=== PATIENT | male | born 1970 | race Caucasian/White ===

== ENCOUNTER 2023-02-17 12:53 | Emergency (ER) | payer OTHER, SELFPAY ==
[2023-02-17 13:12] VITALS: BP 150/88; PULSE 76; RESP 16; TEMP 36.5; O2SAT 96
--- NOTE | 2023-02-17 13:17 | ED.SKABFB ---
HPI - Skin/Abscess/Foreign Bdy General Chief complaint: Skin/Abscess/Foreign Body Stated complaint: rash Time Seen by Provider: 02/17/23 13:01 Source: patient Mode of arrival: ambulatory Limitations: no limitations History of Present Illness HPI narrative: Ayan is a 52-year-old male patient presenting to the clinic today with complaints of a rash to his left lateral hip and left is lower abdomen. He reports that this rash has been there for 1-2 days. Has been out hunting and has been well covered. States he does not normally get poison souleymane or poison oak. Reports that the rash is itchy and seems to be spreading. Denies any fever or chills Related Data Home Medications Medication Instructions Recorded Confirmed amlodipine 10 mg tablet 10 mg PO DAILY 02/17/23 02/17/23 pravastatin 40 mg tablet 40 mg PO HS 02/17/23 02/17/23 Allergies Allergy/AdvReac Type Severity Reaction Status Date / Time No Known Allergies Allergy Verified 02/17/23 13:19 Review of Systems Review of Systems: Pertinent positives per HPI. Patient denies any fever, chills, headache, visual changes, dizziness, cough, runny nose, sore throat, shortness of breath, chest pain, palpitations, nausea, vomiting, diarrhea, constipation, abdominal pain, or any urinary issues. PMFSH Comments At the time of my signature, I reviewed and agree with the nursing past medical, surgical, social, and family history. There is no relevant family history pertinent to the patient complaint. Exam Narrative: General: Well-developed, well nourished, in no apparent distress Head: Normocephalic, atraumatic. Cardio: Regular rate and rhythm, s1 and s2 normal, no murmur appreciated. Resp: Clear to auscultation bilaterally, no rhonchi, rales, wheezing or rubs. Integumentary: [place], warm, and dry, intact without lesion, red raised patchy scaly itchy nonpainful rash to the left lateral hip and left lower abdomen. Course Course Emergency Course: Portions of this record may have been created with voice recognition software. Level of Care: Express Care Visit Vital Signs Vital signs: Vital Signs Temperature 36.5 C 02/17/23 13:12 Pulse Rate 76 02/17/23 13:12 Respiratory Rate 16 02/17/23 13:12 Blood Pressure 150/88 H 02/17/23 13:12 Pulse Oximetry 96 02/17/23 13:12 Oxygen Delivery Room Air 02/17/23 13:12 Temperature 36.5 C 02/17/23 13:12 Pulse Rate 76 02/17/23 13:12 Respiratory Rate 16 02/17/23 13:12 Blood Pressure 150/88 H 02/17/23 13:12 Pulse Oximetry 96 02/17/23 13:12 Oxygen Delivery Room Air 02/17/23 13:12 Vital signs reviewed MDM - Skin/Abscess/Foreign Bdy MDM Narrative Medical decision making narrative: At the time of visit patient is resting comfortably on exam table. I suspect patient has dermatitis to the left hip and left abdomen. Prescription for prednisone taper dose and triamcinolone cream was sent to the pharmacy and supportive measures were discussed with the patient he voiced understanding discharge instructions and agrees to treatment plan. Differential Diagnosis Differential diagnosis: Likely abscess of skin or subcutaneous tissue, viral exanthem, urticaria, cellulitis, eczema, insect bites, impetigo and contact dermatitis Discharge Plan Discharge Clinical Impression: Dermatitis Patient Disposition: Home, Self-Care Condition: Stable Instructions: Antibiotic Form, Dermatitis (ED) Additional Instructions: Apply triamcinolone cream as directed Take prednisone as directed Avoid hot showers May apply calamine lotion to rash Avoid scratching and this causes rash to spread May take benadryl 25-50mg every 6 hours as needed for itching. Follow up with your PCP in 3-5 days if symptoms persist or sooner if they worsen Go to the Emergency Room if symptoms worsen- fever, rash spreading with treatment, shortness of breath, tongue swelling, drooling, or chest pain Prescriptions: New
== END 2023-02-17 13:25 | disposition home or self-care (01) ==
PROVIDERS: Emergency Provider Nurse Practitioner Family; PCP Family Medicine
DX: L30.9 Dermatitis, unspecified (principal); E78.00 Pure hypercholesterolemia, unspecified; I10 Essential (primary) hypertension
CPT/HCPCS: 99203; G0463

== ENCOUNTER 2025-03-14 15:05 | Emergency (ER) | payer OTHER, SELFPAY ==
--- NOTE | 2025-03-14 15:06 | ED.URI ---
HPI - URI/Sore Throat General Chief Complaint: Upper Respiratory Infection Stated Complaint: Cough Time Seen by Provider: 03/14/25 15:05 Source: patient Mode of arrival: ambulatory Limitations: no limitations History of Present Illness HPI Narrative: Patient is a 54-year-old male who presents with 1 week of cough, congestion, chest congestion. Denies any fever, body aches, headache, nausea, vomiting, diarrhea. Has tried DayQuil and Mucinex Related Data Home Medications ?Medication ?Instructions ?Recorded ?Confirmed ?Last Taken ?Type amlodipine 10 mg tablet 10 mg PO DAILY 02/17/23 02/17/23 Unknown History pravastatin 40 mg tablet 40 mg PO HS 02/17/23 02/17/23 Unknown History Allergies Allergy/AdvReac Type Severity Reaction Status Date / Time No Known Allergies Allergy Verified 03/14/25 15:09 Review of Systems Review of Systems: All systems reviewed & are unremarkable except as noted in HPI and below Constitutional: Constitutional: Denies chills, Denies fatigue, Denies fever(s), Denies headache(s), Denies malaise and Denies weakness Eyes: Eyes: Denies blurry vision, Denies itchy eyes and Denies loss of vision ENT: Denies otalgia, Denies headache(s), Reports nasal congestion, Denies sinus pain and Denies sore throat Cardiovascular: Cardiovascular: Denies chest pain, Denies irregular heart rhythm and Denies dyspnea Respiratory: Respiratory: Reports chest congestion, Reports cough and Denies dyspnea Gastrointestinal: Gastrointestinal: Denies abdominal pain, Denies diarrhea, Denies nausea and Denies vomiting Musculoskeletal: Musculoskeletal: Denies back pain, Denies myalgias and Denies arthralgias Integumentary/Breasts: Skin/Breast: Denies pruritus and Denies rash Neurologic: Denies headache(s), Denies loss of vision and Denies weakness Psychiatric: Psychiatric: Reports no additional psychiatric complaints Endocrine: Endocrine: Denies fatigue Allergic/Immunologic: Allergic/Immunologic: Denies itchy eyes PMFSH Comments At time of signature, agree with nursing past medical, surgical, social and family history. There is no relevant family history pertinent to the presenting complaint. Exam Const: General: cooperative, healthy appearing, comfortable, no acute distress and well nourished Nutritional Appearance: well nourished Orientation/consciousness: patient oriented x3 Limitations: no limitations HENMT: Head: normal to inspection, normocephalic and atraumatic Ears: hearing grossly normal bilaterally, external ears normal, TM's normal bilaterally, EAC's normal and no periauricular adenopathy Face/Nose/Sinus: Normal external nose present, Abnormal mucous membranes and turbinates present erythematous bilateral and diffuse, normal facial exam, sinuses nontender and face symmetric Face and sinus: normal facial exam, sinuses nontender and face symmetric Mouth: Yes Normal oral and palatal mucosa present, Yes lip normal, Yes tongue normal, Yes Normal salivary glands and ducts present, Yes oropharynx normal and Yes moist mucous membranes Teeth and gingiva: dentition normal Throat: posterior oropharynx normal, tonsils normal and uvula midline Eyes: General: appearance normal, both eyes and all related structures Alignment and Position: alignment normal and position normal Periorbital: periorbital findings normal Eyelids: eyelids normal Pupils: Equal, round and reactive pupils present Neck: Neck: normal visual inspection, full ROM, no lymphadenopathy and supple Chest: Chest palpation & inspection: normal inspection of the chest and normal palpation of entire chest wall Resp: Effort & Inspection: normal respiratory effort, able to speak in complete sentences and Actively coughing dry Auscultation: no crackles, no rales, rhonchi right upper and right lower and no wheezes Cardio: Rate: regular rate Rhythm: regular rhythm Heart sounds: S1 normal heart sound present and S2 normal heart sound present GI: Inspection: normal to inspection Skin: General skin exam: normal color and no rashes or lesions noted Neuro: General: patient oriented x3 and moves all extremities Cranial nerves: Yes Equal, round and reactive pupils present Speech: normal speech Gait exam (Neuro): Normal gait present Extrem: General: normal to inspection, full ROM and no edema Psych: Appearance: grossly normal and well kempt Mental Status: mental status grossly normal Speech and movement: Normal speech and movement present Affect: normal affect Attitude: cooperative Thought process: Normal thought process present Course Course Emergency Course: Discharge instructions reviewed with patient, as well as provided in writing per nursing staff. The instructions also include specific and strict return/GO TO THE ER as well as f/u information. All questions have been answered, and the patient deny any further questions with discharge and discharge plan. Portions of this record may have been created with voice recognition software Level of Care: Express Care Visit Vital Signs Vital signs: Reviewed [facility] - URI/Sore Throat MDM Narrative Medical decision making narrative: Pt well hydrated appearing, in no respiratory distress, hemodynamically stable. Recommend supportive care. The patient is stable at time of discharge the clinical impression was discussed and the patient was given the opportunity to ask questions, which were addressed as completely as possible given the information available at present. Anticipatory guidance and return to care precautions were discussed and the importance of primary care follow-up was stressed and encouraged. The patient voiced understanding of the plan, indications to return, and the need for follow-up. Exam findings show no acute concerns or changes Patient is appropriate for outpatient treatment and follow-up. Differential diagnosis considered: Pinon virus, strep pharyngitis, allergic rhinitis, upper respiratory tract infection, sinusitis, rhinosinusitis, nasopharyngitis. viral pharyngitis, otitis media, otitis externa, otitis effusion, foreign body, cerumen impaction, viral syndrome, and influenza.? Medical Records Attestation: I reviewed the patient's medical records. Discharge Plan Discharge Clinical Impression: Upper respiratory infection with cough and congestion Patient Disposition: Home Condition: Stable Instructions: Upper Respiratory Infection (ED) Additional Instructions: Take antibiotic as prescribed. Take steroids in the morning with food. Use Tessalon Perles as needed for cough. Use inhaler with spacer as needed. Other symptomatic treatments include: -Alternate Tylenol and Motrin per package directions for fever or pain: Tylenol 650-1000mg by mouth every 4-6 hours. Do not exceed 4000mg in 24 hours. Advil (Ibuprofen) 600 mg by mouth every 6 hours. Do not exceed 2400mg in 24 hours. 8 AM: Tylenol 11 AM: Ibuprofen 2 PM: Tylenol 5 PM: Ibuprofen 8 PM: Tylenol 11 PM: Ibuprofen 2 AM: Tylenol 5 AM: Ibuprofen -Antihistamine medication such as Benadryl at night and Zyrtec/Claritin/Kaylin during the day can help improve symptoms. -Use Flonase twice a day for 5 days then daily to help reduce the inflammation and dry up your sinuses. -You can also use Sudafed or Mucinex. Be sure to drink plenty of water with these medications at least 8 ounces with every dose and it is important to drink 8 to 10 glasses of water per day. Water is a natural decongestant -Eat and drink things that are easy to swallow, like tea or soup, or popsicles. -Oral rinses such as: Salt water gargles and/or may use topical anesthetic (eg. Chloraseptic spray) or lozenges to relieve dryness or throat pain). -Frequent hand washing or hand latin professor is one of the best ways to prevent spread of infection. -Using a vaporizer or humidifier at night will also help thin secretions and help with coughing up phlegm. Call your Primary Care Doctor and make a follow-up appointment in 3 days. If your cough worsens, you develop a fever greater than 103, you develop shaking chills, a fast heartbeat, trouble breathing and/or feel you are are breathing much faster than usual, call your Primary Care Doctor or go to the ER. Patient Language: Portuguese Prescriptions: New azithromycin 250 mg tablet See Rx Instructions .ROUTE .COMPLEX Qty: 6 0RF Rx Instructions: For 250 mg dose pack: take 500 mg today (day 1), then 250 mg for 4 days (days 2-5) benzonatate 100 mg capsule 100 mg PO BID PRN (Reason: cough) Qty: 14 0RF methylprednisolone [Medrol (Louis)] 4 mg tablets,dose pack See Rx Instructions .ROUTE .COMPLEX Qty: 21 0RF Rx Instructions: orally per package directions albuterol sulfate 90 mcg/actuation HFA aerosol inhaler 2 puff inhalation QID PRN (Reason: shortness of breath or wheezing) Qty: 6.7 0RF (DME) Aerochamber MV Spacer See Rx Instructions .Route Qty: 1 0RF Rx Instructions: As directed No Action pravastatin 40 mg tablet 40 mg PO HS amlodipine 10 mg tablet 10 mg PO DAILY triamcinolone acetonide 0.1 % cream 1 applic topical BID 7 Days Qty: 30 0RF Follow-up/Referrals: Duane,Fortino Acosta DO [Primary Care Provider, Unknown] - 3 Days Time of Disposition: 15:20
[2025-03-14 15:11] VITALS: BP 152/89; PULSE 88; RESP 20; TEMP 36.6; O2SAT 97
== END 2025-03-14 15:21 | disposition home or self-care (01) ==
PROVIDERS: Emergency Provider Nurse Practitioner Family; PCP Family Medicine
DX: J06.9 Acute upper respiratory infection, unspecified (principal); R05.9 Cough, unspecified; I10 Essential (primary) hypertension; E78.00 Pure hypercholesterolemia, unspecified
CPT/HCPCS: 99213; G0463

== ENCOUNTER 2025-04-22 09:20 | Emergency (ER) | payer OTHER, SELFPAY ==
--- OUTSIDE RECORDS SUMMARY | 2025-04-22 09:22 | XMS_ITS ---
Author Organization Unknown ENCOUNTERS Encounter Performer Location Date Diagnosis Diagnosis Status Outpatient [facility] [address] [place] [address] [id number] RTN Outpatient [facility]AN[facility]O [facility]ER[facility] [address] [id number] RTN *Note: Encounters from your own facility or health system may be excluded. Allergies, Adverse Reactions, Alerts Allergen Type Severity Identification Date Medications Name Date Quantity Days Supplied GPI Number
--- OUTSIDE RECORDS SUMMARY | 2025-04-22 09:22 | XMS_ITS | Clinical Summary ---
Author Organization [facility] [address] [place] [address] Care Team Providers Care [employer] Worker Name Role Phone Fortino Zepeda DO Primary Care Provider Allergies No known active allergies Medications furosemide (LASIX) 20 mg tabletIndicati ons:Hypertensi on, essential,Loca lized edema TAKE 1 TABLET BY MOUTH EVERY DAY 90 tablet 1 12/01/19 25 Active syringe with needle, safety 3 mL 21 gauge x 1 1/2 syringe Use to inject testosterone monthly 12 each 03/04/20 25 Active testosterone cypionate (DEPO-TESTOTER ONE) 200 mg/mL injection Inject 1 mL (200 mg total) into the muscle as instructed every 28 (twenty-eight) days 1 mL 3 03/04/20 25 Active pravastatin (PRAVACHOL) 40 mg tablet TAKE 1 TABLET BY MOUTH EVERY DAY 90 tablet 2 03/29/20 25 Active amLODIPine (NORVASC) 10 mg tablet TAKE 1 TABLET BY MOUTH EVERY DAY 90 tablet 2 03/29/20 25 Active amLODIPine (NORVASC) 10 mg tablet TAKE 1 TABLET BY MOUTH EVERY DAY 100 tablet 1 08/29/19 25 025 Discontinued pravastatin (PRAVACHOL) 40 mg tablet TAKE 1 TABLET BY MOUTH EVERY DAY 100 tablet 1 08/29/19 25 025 Discontinued Active Problems Problem Noted Date Diagnosed Date Localized edema 12/01/2024 Overview (12/01/2024): Edema October 2024 Lasix every other day Improving - continue monitoring Morbid obesity with BMI of 40.0-44.9, adult 04/2 06/2024 Overview (12/01/2024): BMI 41 Weight management discussed Carpal tunnel syndrome of left wrist 05/25/2024 Carpal tunnel syndrome of right wrist 02/05/2024 Routine physical examination 12/02/2023 Overview (12/01/2024): January 30, 2023 December 01, 2024 Bilateral carpal tunnel syndrome 12/02/2023 GERD (gastroesophageal reflux disease) 7 Overview (12/01/2024): Chronic, stable condition Continue diet modification Hypertension, essential 01/21/2014 Overview (12/02/2023): Chronic, stable condition on Norvasc Continue same medications Dyslipidemia 12/28/2012 Overview (12/01/2024): Chronic, stable condition on pravastatin Continue same medications LDL 108 in December 2021 LDL 111 in January 2023 LDL 131 in November 2023 Immunizations Immunization Administration Dates Next Due Influenza, Quadrivalent, Rec ombinant, Egg Free, Preservative Free, Intramuscular 01/30/2023,02/04/2021,01/13/2020 Influenza, Quadrivalent, Spl it, Preservative Free, Intramuscular 03/15/2019 Influenza, Trivalent, Preser vative Free, Intramuscular 05/12/2012 Influenza, Unspecified 07/12/2024(Deferr ed: Patient Refused),03/06/2022,02/19/2018 Moderna SARS-CoV-2 Monovalen t Vaccination (12+ YRS) 07/25/2020 TD Preservative Free 04/27/1994 Tdap 12/01/2011 ZOSTER Recombinant 01/30/2023 Surgical History Surgery Date Site/Laterality Comments KNEE SURGERY Right COLONOSCOPY age 48 CARPAL TUNNEL RELEASE 02/18/2024 Bilateral Medical History Medical History Date Comments Tinnitus Hypertension HL (hearing loss) Dizziness Snoring High cholesterol Depression Family History Medical History Relation Name Comments Diabetes Father Cancer Mother Relation Name Status Comments Father Mother Social History Tobacco Use Types Packs/Day Years Used Date Smoking Tobacco: Never Passive Smoke Exposure: Past Smokeless Tobacco: Never Tobacco Cessation:Counseling Given: Not Answered Passive Exposure Comments:as a child AUDIT-C Answer Date Recorded Q1: How often do you have a drink containing alc ohol? 2-4 times a month 12/01/2024 Q2: How many drinks containi ng alcohol do you have on a typical day when you are drinking? 3 or 4 12/01/2024 Q3: How often do you have si x or more drinks on one occasion? Never 12/01/2024 PHQ-2 Answer Date Recorded PHQ-2 Total Score (If total score is 3 or more points, staff should administer the PHQ-9) 0 12/01/2024 Personal Safety Answer Date Recorded Have you ever been in or are you currently in a harmful physical or emotional relationship or is someone making you feel afraid or unsafe? Denies 06/08/2024 Sex and Gender Information Value Date Recorded Sex Assigned at Not on file Legal Sex Male 8:14 PM [employer] Gender Identity Not on file Sexual Orientation Not on file Last Filed Vital Signs Vital Sign Reading Time Taken Comments Blood Pressure 142/82 12/01/2024 4:08 PM CDT Pulse 75 12/01/2024 4:08 PM CDT Temperature 36.3 C (97.3 F) 12/01/2024 4:08 PM CDT Respiratory Rate 16 12/01/2024 4:08 PM CDT Oxygen Saturation 96% 12/01/2024 4:08 PM CDT Inhaled Oxygen Concentration - - Weight 132.5 kg (292 lb 1.6 oz) 12/01/2024 4:08 PM CDT Height 179.1 cm (5' 10.5) 12/01/2024 4:08 PM CD T Body Mass Index 41.32 12/01/2024 4:08 PM CDT Plan of Treatment Health Maintenance Due Date Last Done Comments DTaP/Tdap/Td Vaccine (2 - Td or Tdap) 11/30/2021 12/01/2011, 04/27/1994 Zoster Vaccine (2 of 2) 03/27/2023 01/30/2023 Covid-19 Vaccine ( season) 2024 03/28/2021, 07/25/2020, 07/07/2020, Additional history exists Influenza Vaccine (#1) 2024 3, 03/06/2022, 02/04/2021, Additional history exists Depression Screening 12/01/2025 12/01/2024, 07/12/2024, 12/02/2023 Regular Well Visit/Exam 18-64 12/01/2025 12/01/2024 Prostate Cancer Screening-PSA 12/03/2026 12/03/2024, 12/11/2023 Colon Cancer Screening-Colonoscopy 11/26/2028 11/26/2018 Hepatitis C Screening Completed 12/11/2023 Hepatitis B Screening Completed 12/03/2024 Pneumococcal vaccine <65 Aged Out No longer eligible based on patient's age to complete this topic Procedures Procedure Name Priority Date/Time Associated Diagnosis Comments PSA SCREEN Routine 12/03/2024 10:04 AM CDT Prostate cancer screening HEPATITIS C ANTIBODY Routine 12/11/2023 8:46 AM CDT Need for hepatitis C screening test COLONOSCOPY Routine 11/26/2018 from Last 3 Months or Most Recently Relevant to Health Maintenance Results * PSA screen (12/03/2024 10:04 AM CDT) PSA-Total 0.35 <=3.90 ng/mL Comment: Interpretive Data AGE SEX REFERENCE INTERVAL 0 minutes-150 years Female None 0 minutes-49 years Male None 50-59 years Male 0-3.90 60-69 years Male 0-5.40 70-79 years Male 0-6.20 80-150 years Male 0-6.20 The Rudy PSA Total assay procedure was used. Results from different manufacturers or methods may not be comparable. Serial testing should be performed using the same method. Current interpretive data last revised 21. Testing performed by: [facility], [address] [place] [address], [place]., [address] Blood 12/03/2024 10:0 4 AM CDT 12/03/2024 10:09 AM CDT us Fortino Zepeda DO LAB BLOOD ORDERABLES F inal Result [facility] [id number] [facility] [place] [address] * Hepatitis C antibody Blood (12/11/2023 8:46 AM CDT) Hep C Ab Nonreactive Nonreactive Comment: Antibodies to HCV not detected. Does NOT exclude the possibility of recent exposure to HCV. Current interpretive data was last revised on 21 Interpretive Data Nonreactive: Antibodies to HCV not detected. Does NOT exclude the possibility of recent exposure to HCV. Equivocal: Equivocal for HCV antibodies. Supplemental molecular testing will be automatically performed to determine infection status in accordance with current CDC screening recommendations. Reactive: Positive for HCV antibodies. This may represent current or past HCV infection. Supplemental molecular testing will be automatically performed to determine current infection status in accordance with current CDC screening recommendations. Interpretive data was last revised on 2019. Blood 12/11/2023 8:46 AM CDT 12/11/2023 12:28 PM CDT Fortino Zepeda DO LAB MICROBIOLOGY - GEN ERAL ORDERABLES Final Result [facility] [id number] [facility] [employer] [place] [address] * Colonoscopy (11/26/2018) Anatomical Region Laterality Modality Other Historical Provider ENDOSCOPY PROCEDURES Stacia l Result from Last 3 Months or Most Recently Relevant to Health Maintenance Insurance [facility] Address: [address] [place] [address] [facility] Address: [place] [id number] [place] [id number] Care Teams [employer] Worker Relationship Specialty Start Date End Date Fortino Zepeda DO [address] [place] [id number] PCP - General Family Medicine 12/11/23
--- NOTE | 2025-04-22 09:23 | ED.GENADULT ---
HPI - General Adult General Chief complaint: Upper Respiratory Infection Stated complaint: Cough Time Seen by Provider: 04/22/25 09:24 Source: patient Mode of arrival: ambulatory Limitations: no limitations History of Present Illness HPI narrative: 54-year-old male patient presents to the [facility] with complaints of an ongoing cough for the past 6 weeks. Patient was seen here in mid February the given, Medrol Dosepak albuterol inhaler and Tessalon Perles for symptoms. Patient states that his cough has definitely improved since receiving all the medications. Patient states he really has not been taking anything for his cough since finishing the medications. Patient states he still has a bothersome cough that is throughout the day here and there but mostly when he lays down at night his cough worsens. Denies fevers body aches or chills. Denies chest pain or shortness of breath. Related Data Home Medications ?Medication ?Instructions ?Recorded ?Confirmed ?Last Taken ?Type amlodipine 10 mg tablet 10 mg PO DAILY 02/17/23 02/17/23 Unknown History pravastatin 40 mg tablet 40 mg PO HS 02/17/23 02/17/23 Unknown History Allergies Allergy/AdvReac Type Severity Reaction Status Date / Time No Known Allergies Allergy Verified 04/22/25 09:29 Review of Systems Review of Systems: CONSTITUTIONAL: Denies fever, chills, or sweats. EYES: Denies visual changes, redness, or discharge. ENT: Denies rhinorrhea, positive congestion, denies sore throat, or otalgia. CARDIOVASCULAR: Denies chest pain, palpitations, or edema. RESPIRATORY: Positive cough denies dyspnea. GASTROINTESTINAL: Denies abdominal pain, nausea, vomiting, or diarrhea. GENITOURINARY: Denies dysuria or hematuria. SKIN: Denies rash or itching. MUSCULOSKELETAL: Denies back pain, joint pain, or myalgia. NEUROLOGIC: Denies headache, numbness, or weakness. PSYCHIATRIC: Denies anxiety or depression. [facility] Past Medical History Medical History (Updated 04/22/25 @ 09:47 by Eneida Montanez APRN) Hypercholesteremia Hypertension Comments At the time of my signature I agree with nursing past medical history, surgical, social, and family history. There is no relevant family history pertinent to the presenting complaint. Exam Narrative: GENERAL: Well-appearing, well-nourished, and in no acute distress. HEAD: Normocephalic, atraumatic. EYES: PERRLA and EOMI. ENT: Nares clear, no rhinorrhea or epistaxis. Mucous membranes moist. posterior pharynx with no erythema, tonsillar enlargement, exudates or lesions present. Bilateral TMs are clear there is erythema or foreign bodies the canal. NECK: Supple. No lymphadenopathy CHEST: Clear to auscultation. No respiratory distress. HEART: Regular rate and rhythm. No murmur heard. Normal peripheral pulses. ABDOMEN: Soft, nontender, nondistended, normal active bowel sounds. EXTREMITIES: Normal range of motion. No edema. SKIN: Warm, dry, no rash. NEURO: No focal deficits. Alert and oriented x3. Course Course Level of Care: Express Care Visit Vital Signs Vital signs: Vital Signs Temperature 36.5 C 04/22/25 09:30 Pulse Rate 94 04/22/25 09:30 Respiratory Rate 18 04/22/25 09:30 Blood Pressure 165/95 H 04/22/25 09:30 Pulse Oximetry 97 04/22/25 09:30 Oxygen Delivery Room Air 04/22/25 09:30 Temperature 36.5 C 04/22/25 09:30 Pulse Rate 94 04/22/25 09:30 Respiratory Rate 18 04/22/25 09:30 Blood Pressure 165/95 H 04/22/25 09:30 Pulse Oximetry 97 04/22/25 09:30 Oxygen Delivery Room Air 04/22/25 09:30 Vital signs reviewed. The patient has been informed that they may have pre-hypertension or Hypertension based on a BP reading in the department. I recommend that the patient call the primary care provider listed on their discharge instructions or a physician of their choice this week to arrange follow up for further evaluation of possible pre-hypertension or Hypertension MDM MDM Narrative Medical decision making narrative: Discussed with patient that his lung sounds are nice and clear today and the fact that he is not running any fevers and that his cough has improved is reassuring. Discussed with patient that this could just be a post viral cough that can sometimes can last a little while we will give him a prescription for some Tessalon Perles to help with the coughing throughout the day but would highly recommend a an antihistamine before bed to help decrease the sinus drainage fall into the back the throat that is causing causing the worsening cough at night. Discussed with patient he can also increase his vitamin-C to help brother up his immune system as well as warm salt water gargles, hot tea with honey and drinking lots of water. Discussed with him that this may take couple more weeks to fully go away but it should continue to improve if he starts having chest pain shortness of breath or spikes another fever he needs to see his primary doctor for further evaluation. Differential Diagnosis Differential Diagnosis: Differential diagnosis: Allergic rhinitis, chronic sinusitis, tonsillitis, acute sinusitis, infectious mononucleosis, seasonal influenza, pertussis, diphtheria, meningococcal disease, viral syndrome, viral bronchitis, RSV, COVID-19 Critical Care Time Critical Care Time Critical Care Time: No Discharge Plan Discharge Clinical Impression: Post-viral cough syndrome Patient Disposition: Home Condition: Stable Instructions: Antibiotic Form, Acute Cough (ED) Additional Instructions: Viral illness may last between 7-12days; antibiotic is NOT recommended at this time. Recommend antihistamine at night time such as Claritin/Zyrtec/Kaylin Cough syrup may cause drowsiness; avoid driving or take it at night time. Use inhaler as needed for cough, wheezing, shortness of breath or chest tightness. increase your vitamin C, 2000 mg in the morning and 2000 mg in the evening to improve urinary Tra immune system may also want to try some vitamin D or zinc as well Also, recommend symptomatic treatment includes: rest, fluids, and increase humidity of the air at home. Recommend Acetaminophen or nonsteroidal anti-inflammatory agents (NSAIDs) as directed in the bottle to reduce fever and/pain/headache. Avoid smoking/second-hand smoke. Limit visits to areas with large crowds. Please schedule a follow-up visit with your personal physician for further evaluation and treatment within 3-5days. Including recheck and discussion of your blood pressure. If your symptoms persist, change or worsen significantly before you can contact your personal physician then please, without delay, go to the emergency department for further evaluation. Patient Language: Yi Prescriptions: New benzonatate 200 mg capsule 200 mg PO TID PRN (Reason: cough) 10 Days Qty: 30 0RF No Action pravastatin 40 mg tablet 40 mg PO HS amlodipine 10 mg tablet 10 mg PO DAILY triamcinolone acetonide 0.1 % cream 1 applic topical BID 7 Days Qty: 30 0RF azithromycin 250 mg tablet See Rx Instructions .ROUTE .COMPLEX Qty: 6 0RF Rx Instructions: For 250 mg dose pack: take 500 mg today (day 1), then 250 mg for 4 days (days 2-5) benzonatate 100 mg capsule 100 mg PO BID PRN (Reason: cough) Qty: 14 0RF methylprednisolone [Medrol (Louis)] 4 mg tablets,dose pack See Rx Instructions .ROUTE .COMPLEX Qty: 21 0RF Rx Instructions: orally per package directions albuterol sulfate 90 mcg/actuation HFA aerosol inhaler 2 puff inhalation QID PRN (Reason: shortness of breath or wheezing) Qty: 6.7 0RF (DME) Aerochamber MV Spacer See Rx Instructions .Route Qty: 1 0RF Rx Instructions: As directed Follow-up/Referrals: Duane,Fortino Acosta DO [Primary Care Provider, Unknown] Time of Disposition: 09:44
--- OUTSIDE RECORDS SUMMARY | 2025-04-22 09:23 | XMS_ITS | Clinical Summary ---
Author Organization [facility] Address [facility] [place] [address] Care Team Providers Care Co Founder And Director Name Role Phone Fortino Zepeda Primary Care Provider [phone] Allergies No known active allergies Medications pravastatin (PRAVACHOL) 40 MG tabletIndications:M ixed hyperlipidemia TAKE 1 TABLET (40 MG) BY MOUTH NIGHTLY AT BEDTIME 90 tablet 3 Active amLODIPine (NORVASC) 10 MG tabletIndications:E ssential hypertension TAKE 1 TABLET BY MOUTH EVERY DAY 90 tablet 3 Active Active Problems Problem Noted Date Diagnosed Date Cough 07/03/2017 GERD (gastroesophageal reflux disease) 7 Hypertension 01/21/2014 Overview (08/19/2018): Description: borderline, 07/11/2010 Hyperlipidemia 12/28/2012 Resolved Problems Problem Noted Date Diagnosed Date Resolved Date Screening for malignant neoplasm of prostate 0 01/06/2020 Encounter for preventive health examination 12/28/2012 01/06/2020 Immunizations Immunization Administration Dates Next Due Flublok (Quadrivalent) 01/30/2023,02/04/2021, Fluzone 6 Months+ Quad (0.5 mL Prefilled Syringe) 03/15/2019 Influenza Adult (Generic) 03/06/2022,02/19/2018 MODERNA COVID-19 (12+) MRNA, LNP-S, PF, 100 MCG/ 0.5 ML DOSE 07/25/2020,07/07/2020,06/08/2020 MODERNA COVID-19 (CONTROL SYSTEMS SPECIALIST MAGDA JOSEPH), MRNA, LNP-S, PF, 50 MCG/ 0.25 ML DOSE 03/28/2021 Shingrix 01/30/2023 Td (Tenivac) preservative free 04/27/1994 Tdap (Generic) 12/01/2011 Family History Medical History Relation Comments Diabetes Father Diabetes Maternal Grandfather cerebrovascular accident Maternal Grandfather Breast Cancer Mother Relation Status Comments Father Maternal Grandfather Mother Social History Tobacco Use Types Packs/Day Years Used Date Smoking Tobacco: Never Smokeless Tobacco: Never Alcohol Use Standard Drinks/Week Comments Yes 0 (1 standard drink = 0.6 oz pur e alcohol) moderate PHQ-2 Answer Date Recorded Patient Health Questionnaire-2 Score 0 01/30/2023 Sex and Gender Information Value Date Recorded Sex Assigned at Not on file Legal Sex Male 4:36 PM CDT Gender Identity Not on file Sexual Orientation Not on file Occupation Industry Job Start Date Job End Date sales Not on file Not on file Not on file Last Filed Vital Signs Vital Sign Reading Time Taken Comments Blood Pressure 160/98 01/30/2023 9:36 AM CDT Pulse 70 01/30/2023 9:36 AM CDT Temperature - - Respiratory Rate - - Oxygen Saturation - - Inhaled Oxygen Concentration - - Weight 123.8 kg (273 lb) 01/30/2023 9:36 AM CDT Height 182.9 cm (6') 01/30/2023 9:36 AM CDT Body Mass Index 37.03 01/30/2023 9:36 AM CDT Plan of Treatment Health Maintenance Due Date Last Done Comments Hepatitis C 1986 Hepatitis B Vaccines (1 of 3 - 19+ 3-dose series) 10/29/1987 Pneumococcal Vaccine: 50+ Years (1 of 1 - PCV) 2018 DTaP, Tdap and Td Vaccines (2 - Td or Tdap) 11/30/2021 12/01/2011, 04/27/1994 Zoster Vaccines (2 of 2) 03/27/2023 01/30/2023 Annual Physical 01/31/2024 01/30/2023, 12/28, 11/23/2020, Additional history exists COVID-19 Vaccine (2024- season) 2024 03/28/2021, 07/25/2020, 07/07/2020, Additional history exists Influenza Adult (#1) 2025 01/30/2023, 03/06/2022, 02/04/2021, Additional history exists Colorectal Cancer Screening Colonoscopy (10 Years) 11/26/2028 11/26/2018 Hepatitis A Vaccines Aged Out No long er eligible based on patient's age to complete this topic Meningococcal B Vaccine Aged Out No l onger eligible based on patient's age to complete this topic Meningococcal Vaccine Aged Out No franklyn russell eligible based on patient's age to complete this topic RSV Immunizations Under 20 Months Aged Out No longer eligible based on patient's age to complete this topic Procedures Procedure Name Priority Date/Time Associated Diagnosis Comments COLONOSCOPY GENERIC (SCAN ORDER) Routine 11/26/2018 from Last 3 Months or Most Recently Relevant to Health Maintenance Results * COLONOSCOPY (11/26/2018) us Documents Scanned SCANNING Final Result from Last 3 Months or Most Recently Relevant to Health Maintenance Insurance [facility] Care Teams Co Founder And Director Relationship Specialty Start Date End Date Fortino Zepeda DO PCP - General FAMILY PRACTICE 08/16/18
[2025-04-22 09:30] VITALS: BP 165/95; PULSE 94; RESP 18; TEMP 36.5; O2SAT 97
== END 2025-04-22 09:57 | disposition home or self-care (01) ==
PROVIDERS: Emergency Provider Nurse Practitioner Family; PCP Family Medicine
DX: R05.8 Other specified cough (principal); I10 Essential (primary) hypertension; E78.00 Pure hypercholesterolemia, unspecified
CPT/HCPCS: 99213; G0463